=== PATIENT | male | born 1975 | race Hispanic/Latino ===

== ENCOUNTER 2017-06-30 05:13 | Emergency (ER) | payer OTHER ==
[2017-06-30 05:30] VITALS: TEMP 98.2
--- NOTE | 2017-06-30 05:41 | C.PDOC ---
History Of Present Illness 41 year old male complains of bilateral leg swelling for one year, worsening tonight. Patient states he stands a lot during work and was on his feet all of yesterday. Patient states he has had this problem before. Denies fever, chills, chest pain, SOB, palpitations, nausea, vomiting, trauma, weakness, numbness, calf tenderness, recent travel. Time Seen by Provider: 06/30/17 05:32 Chief Complaint (Nursing): Lower Extremity Problem/Injury History Per: Patient History/Exam Limitations: no limitations Onset/Duration Of Symptoms: Days Current Symptoms Are (Timing): Still Present Recent travel outside of the [place]: No Past Medical History Reviewed: Historical Data, Nursing Documentation, Vital Signs Vital Signs: Last Vital Signs Temp 98.2 F 06/30/17 05:21 Pulse 84 06/30/17 06:03 Resp 16 06/30/17 06:03 BP 118/67 06/30/17 06:03 Pulse Ox 97 06/30/17 06:07 - Medical History PMH: No Chronic Diseases Surgical History: No Surg Hx Family History: States: Unknown Family Hx - Social History Hx Tobacco Use: Yes (heavy smoker) Hx Alcohol Use: Yes Hx Substance Use: Yes (heroin) - Immunization History Hx Tetanus Toxoid Vaccination: Yes Hx Influenza Vaccination: No Hx Pneumococcal Vaccination: No Review Of Systems Constitutional: Negative for: Fever, Chills Cardiovascular: Negative for: Chest Pain, Palpitations Respiratory: Negative for: Shortness of Breath Gastrointestinal: Negative for: Nausea, Vomiting Musculoskeletal: Positive for: Other (Leg swelling) Neurological: Negative for: Weakness, Numbness Physical Exam - Physical Exam Appears: Non-toxic Skin: Warm, Dry, No Rash, No Cyanotic, No Ecchymosis Head: Atraumatic, Normacephalic Eye(s): bilateral: Normal Inspection Oral Mucosa: Moist Neck: Normal ROM Chest: Symmetrical Cardiovascular: Rhythm Regular Respiratory: Normal Breath Sounds, No Rales, No Rhonchi, No Wheezing Extremity: Normal ROM, No Tenderness, Pedal Edema (Bilaterally mild), No Calf Tenderness, No Deformity Pulses: Left Dorsalis Pedis: Normal, Right Dorsalis Pedis: Normal Neurological/Psych: Oriented x3, Normal Speech, Other (No focal deficits) Gait: Steady ED Course And Treatment O2 Sat by Pulse Oximetry: 97 (Room air) Pulse Ox Interpretation: Normal Medical Decision Making Medical Decision Making: Patient with bilateral leg edema, no leg pain or injury. No calf tenderness. Patient denies chest pain or SOB. Patient has been seen in ED fro prior similar symptom. Advise patient to elevate legs when at rest and to wear compression stockings. Will prescribe lasix and advise follow up with clinic. Disposition Counseled Patient/Family Regarding: Diagnosis, Need For Followup, Rx Given - Disposition Disposition: HOME/ ROUTINE Disposition Time: 05:40 Condition: STABLE Additional Instructions: Please elevate your legs when at home or resting Try to wear compression stockings to help with leg edema Take medication daily as prescribed Follow up with your primary doctor or clinic for further care Prescriptions: Furosemide [Lasix] 20 mg PO DAILY #10 tab Instructions: Leg Edema (ED) Forms: [facility] (Romanian) - POA Present On Arrival: None - Clinical Impression Clinical Impression: Leg edema, Dependent edema - Scribe Statement The provider has reviewed the documentation as recorded by the Scribtyler Oneal All medical record entries made by the Zulyibtyler were at my direction and personally dictated by me. I have reviewed the chart and agree that the record accurately reflects my personal performance of the history, physical exam, medical decision making, and the department course for this patient. I have also personally directed, reviewed, and agree with the discharge instructions and disposition.
[2017-06-30 06:03] VITALS: BP 118/67; PULSE 84; RESP 16
[2017-06-30 06:07] VITALS: O2SAT 97
== END 2017-06-30 06:03 | disposition home or self-care (01) ==
LOC: C.ER 05:13
DX: R60.0 Localized edema (principal)